=== PATIENT | female | born 1970 | race Hispanic/Latino ===

== ENCOUNTER 2016-10-02 21:04 | Emergency (ER) | payer SELFPAY ==
[2016-10-03] MEDS ORDERED: TYLENOL #3 ONE (02:37)
[2016-10-03] MEDS ORDERED: TYLENOL #3 PO ONE (02:42)
--- NOTE | 2016-10-03 03:39 | Emergency Department Report ---
HPI - General Chief Complaint: Dental/Oral Time Seen by Provider: 10/03/16 03:11 - HPI HPI: The patient is a 46-year-old female who presents to ED complaining of 7/10 pain in the right side of his mouth x 2 days . Patient states that the pain started 3 days ago and has increased in severity over the last 2 days. The pain is exacerbated by eating and opening of the mouth. Patient states the pain is alleviated initially with pain medication but comes back. Patient states that it radiates towards right ear. Patient describes a as a throbbing, pressure-like sensation. Patient states otherwise well and has no other complaints. Patient has had no fevers and no chills. No chest pain, no shortness of breath. No abdominal pain. No shortness of breath or recent trauma to the face. ED Past Medical Hx - Past Medical History Previous Medical History?: No Hx Hypertension: No Additional medical history: Obesity - Surgical History Past Surgical History?: Yes Additional Surgical History: TUBAL LIGATION - Social History Smoking Status: Never Smoker Substance Use Type: None - Medications Home Medications: Home Medications Medication Instructions Recorded Confirmed Last Taken Type traMADol [Ultram] 50 mg PO Q4HR PRN #20 tablet 08/01/15 Unknown Rx Amoxicillin [Amoxicillin TAB] 875 mg PO BID #16 tablet 10/03/16 Unknown Rx Ibuprofen [Motrin] 800 mg PO Q8HR PRN #30 tablet 10/03/16 Unknown Rx ED Review of Systems ROS: Stated complaint: TOOTHACHE Other details as noted in HPI Constitutional: denies: chills, fever Eyes: denies: eye pain, eye discharge, vision change ENT: dental pain. denies: ear pain, throat pain, hearing loss, epistaxis, congestion Respiratory: denies: cough, shortness of breath, wheezing Cardiovascular: denies: chest pain, palpitations Endocrine: no symptoms reported Gastrointestinal: denies: abdominal pain, nausea, diarrhea, melena Genitourinary: denies: urgency, dysuria, frequency, hematuria, discharge, abnormal menses Musculoskeletal: denies: back pain, joint swelling, arthralgia Skin: denies: rash, lesions Neurological: denies: headache, weakness, numbness, paresthesias, confusion, abnormal gait Psychiatric: denies: anxiety, depression Hematological/Lymphatic: denies: easy bleeding, easy bruising Physical Exam - Physical Exam Vital Signs: Vital Signs 10/02/16 10/02/16 22:41 23:14 Temperature 98.4 F 98.4 F Pulse Rate 111 H 111 H Respiratory 22 Rate Blood Pressure 133/94 Blood Pressure 133/94 [Right] O2 Sat by Pulse 100 100 Oximetry Physical Exam: GENERAL: Alert and oriented x3, no apparent distress, Normal Gait, atraumatic. HEAD: Head is normocephalic and a-traumatic. EYES: Extra ocular muscles are intact. Pupils are equal, round, and reactive to light and accommodation. EARS: symetrical,gross auditory nml bilaterally. NOSE: Nose symetrical, Nontender,Nares appeared normal. MOUTH:Mouth is well hydrated and without lesions. Tonsils nonerythematous or swollen, Uvula midline, Tongue not elevated. Mucous membranes are moist. Posterior pharynx clear, no exudate or lesions. Patent airways. Dental caries at tooth #32. No dental abscess visualized. No bleeding NECK: Supple. Non edematous, No carotid bruits. No lymphadenopathy or thyromegaly. LUNGS: Symetrical with respiration, No wheezing, no rales or crackles, CTAB. HEART: S1, S2 present, regular rate and rhythm without murmur, no rubs, no gallops. EXTREMITIES/MUSCULOSKELETAL: No cyanosis, clubbing, rash, lesions or edema. ly. SKIN: Warm and dry, No lesions, No ulceration or induration present. ED Course Vital Signs 10/02/16 10/02/16 22:41 23:14 Temperature 98.4 F 98.4 F Pulse Rate 111 H 111 H Respiratory 22 Rate Blood Pressure 133/94 Blood Pressure 133/94 [Right] O2 Sat by Pulse 100 100 Oximetry ED Medical Decision Making - Medical Decision Making 46-year-old female presents with dental pain secondary to caries ED course: Patient received 2 tablets of Tylenol 3. Discussed the patient will follow up with dentist. Discussed the patient home medication of amoxicillin twice day and Motrin every 8 hours. Discussed with patient need for dentist appointment. Patient verbalization understands instructions and will comply to follow up. Vital signs are stable. Patient is in no acute distress. Critical care attestation.: If time is entered above; I have spent that time in minutes in the direct care of this critically ill patient, excluding procedure time. ED Disposition Clinical Impression: Pain due to dental caries, Tooth ache Disposition: DISCHARGED TO HOME OR SELFCARE Is pt being admited?: No Does the pt Need Aspirin: No Condition: Stable Instructions: Dental Caries (ED), Toothache (ED) Prescriptions: Amoxicillin [Amoxicillin TAB] 875 mg PO BID #16 tablet Ibuprofen [Motrin] 800 mg PO Q8HR PRN #30 tablet PRN Reason: Pain Referrals: PRIMARY CAREMD [Primary Care Provider] - 3-5 Days KALIN VILLALOBOS MD [Referring] - 3-5 Days RACHEL GE MD [Referring] - 3-5 Days [facility] [Outside] - 3-5 Days [facility] [Outside] - 3-5 Days Forms: Work/School Release Form(ED) Time of Disposition: 04:00
[2016-10-03 04:49] VITALS: BP 110/75
== END 2016-10-03 04:01 | disposition home or self-care (01) ==
LOC: ED 21:04
DX: K02.9 Dental caries, unspecified (principal); K08.89 Other specified disorders of teeth and supporting structures; E66.9 Obesity, unspecified
CPT/HCPCS: 99282

== ENCOUNTER 2017-04-16 20:49 | Emergency (ER) | payer SELFPAY ==
[2017-04-16 21:33] VITALS: BP 131/89
[2017-04-16 22:19] LABS: Basophils % (Auto) 0.8 % (0.0-1.8); Hematocrit 38.3 % (30.3-42.9); Hemoglobin 12.4 gm/dl (10.1-14.3); Mean Corpuscular HGB Conc 33 % (30-34); Mean Corpuscular Hemoglobin 28 pg (28-32); Mean Corpuscular Volume 87 fl (79-97); Platelet Count 362 K/mm3 (140-440); Red Blood Count 4.39 M/mm3 (3.65-5.03); Red Cell Distribution Width 15.5 % (13.2-15.2); White Blood Count 10.6 K/mm3 (4.5-11.0)
[2017-04-16 22:26] LABS: Blood Urea Nitrogen 11 mg/dL (7-17); Calcium 8.9 mg/dL (8.4-10.2); Carbon Dioxide 24 mmol/L (22-30); Chloride 102.7 mmol/L (98-107); Glucose 112 mg/dL (65-100); Sodium 138 mmol/L (137-145)
[2017-04-16 22:28] LABS: Anion Gap 16 mmol/L; Potassium 4.9 mmol/L (3.6-5.0)
[2017-04-17 00:08] LABS: Bilirubin,Urine NEG (Negative); Blood,Urine NEG (Negative); Ketones,Urine NEG (Negative); Leukocyte Esterase,Urine TR (Negative); Mucus,Urine FEW /HPF; Nitrite,Urine NEG (Negative); Protein,Urine <15 mg/dL mg/dL (Negative); Urobilinogen,Urine < 2.0 mg/dL (<2.0)
== END 2017-04-17 01:22 | disposition left against medical advice (07) ==
LOC: ED 20:49
DX: M54.5 Low back pain (principal); Z53.21 Procedure and treatment not carried out due to patient leaving prior to being seen by health care provider
CPT/HCPCS: 36415; 80048; 81001; 85025